=== PATIENT | female | born 1995 | race Caucasian/White ===

== ENCOUNTER 2021-02-06 18:05 | Emergency (ER) | payer OTHER, MEDICAID ==
--- NOTE | 2021-02-06 18:34 | ED Physician Documentation ---
PD HPI LOWER EXT INJURY - Stated complaint Stated Complaint: RT ANKLE INJURY - Chief complaint Chief Complaint: Trauma Ext - History obtained from History obtained from: Patient - History of Present Illness PD HPI LOW EXT INJURY LOCATION: Right, Ankle (twisted ankle on wet cement, with crack and pain feeling as she fell. She had her 4-month-old baby in her arms that she fell but the child cried right away without apparent injury.) Type of injury: Fall, Twist (she states she slipped on wet cement and twisted right ankle, feeling pop as she fell. Was carrying her 4 month old baby so protected her and did not catch her own falling per se. Denies other injury.) Where injury occurred: Home Timing - onset: Today Timing - details: Abrupt onset Improved by: No: Immobilization Worsened by: Moving, Palpating Associated symptoms: No: Weakness, Numbness Similar symptoms before: Has not had sx before Review of Systems Constitutional: denies: Fever, Chills Nose: denies: Rhinorrhea / runny nose, Congestion Throat: denies: Sore throat Cardiac: denies: Chest pain / pressure Respiratory: denies: Cough GI: denies: Abdominal Pain Neurologic: denies: Focal weakness, Numbness, Altered mental status, Head injury, LOC PD PAST MEDICAL HISTORY - Past Medical History Cardiovascular: None Respiratory: None VP INTEGRATION: Other (4 months , .) Musculoskeletal: None - Present Medications Home Medications: Ambulatory Orders Medication Instructions Recorded Confirmed Ibuprofen [Motrin] 600 mg PO TID PRN #25 tab 02/06/21 Ondansetron Odt [Zofran Odt] 1 tab PO PRN PRN 02/06/21 02/06/21 Ondansetron Odt [Zofran] 4 mg TL Q6H PRN #10 tablet 02/06/21 Oxycodone HCl/Acetaminophen 1 each PO Q6H PRN #12 tablet 02/06/21 [Percocet 5-325 mg Tablet] Sertraline HCl 1 tab PO DAILY 02/06/21 02/06/21 - Allergies Allergies/Adverse Reactions: Allergies Allergy/AdvReac Type Severity Reaction Status Date / Time acetaminophen [From Vicodin] Allergy Rash Verified 02/06/21 18:43 amitriptyline Allergy Rash Verified 02/06/21 18:43 hydrocodone [From Vicodin] Allergy Rash Verified 02/06/21 18:43 PD ED PE NORMAL - Vitals Vital signs reviewed: Yes - General General: Alert and oriented X 3, Well developed/nourished, Other (appears in pain due to ankle injury. Declines narcotic meds right now. ) - HEENT HEENT: Atraumatic - Neck Neck: Supple, no meningeal sign, No bony TTP - Respiratory Respiratory: Clear bilaterally - Abdomen Abdomen: Soft, Non tender - Derm Derm: Normal color, Warm and dry - Extremities Extremities: Other (right ankle tender medial and lateral with some swelling. Normal pulses at ankle/foot. Good color and cap refill, sensation distally. Tender at distal fibula as well. Not tender at knee. ) - Neuro Neuro: Alert and oriented X 3, No motor deficit, No sensory deficit, Normal speech Results - Vitals Vitals: Vital Signs - 24 hr 02/06/21 02/06/21 18:18 20:24 Temperature 36.2 C L 36.9 C Heart Rate 108 H 92 Respiratory 15 18 Rate Blood Pressure 129/83 H 137/81 H O2 Saturation 99 100 Oxygen O2 Source Room air - Rads (name of study) right ankle Radiology: Prelim report reviewed (medial and posterior malleolar fracture and fibular shaft comminuted spiral fracture. ), See rad report Procedures - Splint (location) right ankle Splint applied by: Tech Type of splint: Fiberglass, Posterior, Stirrup Other: Patient tolerated well, No complications, Neurovascular intact, Crutches provided Departure - Departure Disposition: 01 Home, Self Care Clinical Impression: Accidental fall Qualifiers: Encounter type: initial encounter Qualified Code(s): W19.XXXA - Unspecified fall, initial encounter Bimalleolar fracture of right ankle Qualifiers: Encounter type: initial encounter Fracture type: closed Qualified Code(s): S82.841A - Displaced bimalleolar fracture of right lower leg, initial encounter for closed fracture Condition: Stable Record reviewed to determine appropriate education?: Yes Instructions: ED Fx Ankle General Follow-Up: Isac Martínez MD [Provider Admit Priv/Credential] - Prescriptions: Ibuprofen [Motrin] 600 mg PO TID PRN #25 tab PRN Reason: Pain Oxycodone HCl/Acetaminophen [Percocet 5-325 mg Tablet] 1 each PO Q6H PRN #12 tablet PRN Reason: pain Ondansetron Odt [Zofran] 4 mg TL Q6H PRN #10 tablet PRN Reason: Nausea / Vomiting Comments: Keep the splint in place. Nonweightbearing. Ice elevate and rest the ankle often to reduce swelling. You will want to follow-up with orthopedics for reevaluation and decision on casting or if it needs internal stabilization such as surgery. The appearance at this point looks like casting would be sufficient but is up to the orthopedist. Call Monday for a follow up appt for later in the week or next week. The splint for now will accommodate any swelling that will occur over the next few days and hold it sturdy for initial healing. Use some anti-inflammatory such as ibuprofen 3 times a day with food. To that add Tylenol every 4 hours if needed for pain. Ondansetron if needed for nausea. Add oxycodone sparingly if needed for worse pain. This typically is most needed in the first several days with the acute injury. Discharge Date/Time: 02/06/21 20:44
[2021-02-06] MEDS: KETOROLAC 30 MG/ML VIAL IM STA (18:50)
[2021-02-06] MEDS: ONDANSETRON ODT 4 MG TABLET TL STA (18:50)
[2021-02-06] MEDS: ACETAMINOPHEN 325 MG TABLET PO STA (18:50)
--- NOTE | 2021-02-06 19:21 | XRAY Report ---
PROCEDURE: Ankle 3 View RT INDICATIONS: twisting injury ankle TECHNIQUE: 3 views of the ankle were acquired. COMPARISON: None FINDINGS: Bones: Displaced, comminuted fracture of the distal fibula. Mildly displaced fracture of the medial m alleolus. Relatively displaced fracture of the posterior malleolus. Soft tissues: No tibiotalar joint effusion. Achilles tendon appears normal. IMPRESSION: Distal fibula, lateral malleolus and posterior malleolus fractures. Reviewed by: Reva Dumas MD, PhD on 02/06/2021 7:20 PM PDT Approved by: Reva Dumas MD, PhD on 02/06/2021 7:20 PM PDT Station ID: [id number]
[2021-02-06] MEDS: oxyCODONE/ACET 5/325 Prepack 4 PO STA (19:33)
[2021-02-06] MEDS: ONDANSETRON ODT 4 MG Prepack 2 TL PRN (19:33)
[2021-02-06 20:25] VITALS: BP 137/81
== END 2021-02-06 20:44 | disposition home or self-care (01) ==
LOC: ED 18:05
DX: S82.61XA Displaced fracture of lateral malleolus of right fibula, initial encounter for closed fracture (principal); S82.841A Displaced bimalleolar fracture of right lower leg, initial encounter for closed fracture; X50.1XXA Overexertion from prolonged static or awkward postures, initial encounter; Y92.008 Other place in unspecified non-institutional (private) residence as the place of occurrence of the external cause
CPT/HCPCS: 29515; 73610; 96372; 99283; 99284; A9270; Q0162